=== PATIENT | female | born 1995 | race Caucasian/White ===

== ENCOUNTER 2021-01-24 17:18 | Emergency (ER) | payer SELFPAY ==
[~2021-01-24] VITALS: Ht 162.6 cm; Wt 63.5 kg
[2021-01-24] MEDS ORDERED: ONDANSETRON HCL/PF 4 MG/2 ML VIAL ONE ×2 (17:55→18:28)
[2021-01-24] MEDS ORDERED: DICYCLOMINE HCL INJ 20 MG/2 ML AMPUL IM ONE ×2 (17:55→18:00)
[2021-01-24] MEDS ORDERED: ONDANSETRON HCL/PF 4 MG/2 ML VIAL IVP ONE (18:00)
[2021-01-24] MEDS ORDERED: IV NS 0.9% 1,000 ML BAG IV ONE (18:00)
[2021-01-24 18:07] LABS: BASOPHILS # (AUTO) 0.1 K/uL (0.0-0.2); BASOPHILS % (AUTO) 0.6 % (0.0-2.0); EOSINOPHILS % (AUTO) 0.1 % (0.0-6.0); HEMATOCRIT 35 % (33-45); HEMOGLOBIN 11.5 g/dL (11.5-14.8); LYMPHOCYTES # (AUTO) 2.4 K/uL (0.8-4.8); LYMPHOCYTES % (AUTO) 20.9 % (20.0-44.0); MEAN CORPUSCULAR HGB CONC 33 g/dl (31.0-36.0); MEAN CORPUSCULAR VOLUME 80 fL (82-100); MONOCYTES # (AUTO) 0.8 K/uL (0.1-1.30); NEUTROPHILS # (AUTO) 8.3 K/uL (1.8-8.9); NEUTROPHILS % (AUTO) 71.4 % (43.0-81.0); PLATELET COUNT (AUTO) 446 K/uL (150-450); WHITE BLOOD COUNT (AUTO) 11.6 K/uL (4.3-11.0)
[2021-01-24 18:14] LABS: CALCIUM, SERUM 8.7 mg/dL (8.5-10.1); CREATININE 0.7 mg/dL (0.6-1.3); POTASSIUM 3.2 mmol/L (3.5-5.1)
--- NOTE | 2021-01-24 18:15 | NUR ---
JULIETA FROM THE STREET TO ER BED 7. AAOX4. NOT IN RESP DSITRESS. AMBULATORY. CAME IN FOR R SIDED ABDOMINAL PAIN STARTED THIS MORNING. PT ALSO C/O ASSOCIATED N/V/D. PAIN IS RATED 9/10. PROVIDER WAS AT THE BEDSIDE FOR EVAL. ORDERS RECEIVED, NOTED AND CARRIED OUT. IV LINE ESTABLISHED N THE LFA 20G, BLOOD DRAWN AND SENT TO LAB
[2021-01-24 18:19] LABS: ALBUMIN 3.5 g/dL (3.4-5.0); BILIRUBIN,DIRECT 0.1 mg/dL (0.0-0.2); BILIRUBIN,TOTAL 0.2 mg/dL (0.2-1.0); TOTAL PROTEIN, SERUM 6.6 g/dL (6.4-8.2)
[2021-01-24] MEDS ORDERED: MORPHINE SULFATE INJ 2 MG/ML DISP.SYRIN ONE (18:25)
[2021-01-24] MEDS ORDERED: IV NS 0.9% 250 ML IV ONE (18:28)
[2021-01-24] MEDS ORDERED: IOHEXOL-300 100 ML VIAL IV ONE (18:28)
[2021-01-24] MEDS ORDERED: MORPHINE SULFATE INJ 2 MG/ML DISP.SYRIN IV ONE (18:30)
[2021-01-24] MEDS ORDERED: ONDANSETRON HCL/PF 4 MG/2 ML VIAL IV ONE (18:30)
[2021-01-24] MEDS ORDERED: MORPHINE SULFATE INJ 4 MG/ML DISP.SYRIN ONE (18:53)
[2021-01-24] MEDS ORDERED: ONDANSETRON HCL/PF - ER 4 MG/2 ML VIAL IV ONE (19:00)
--- NOTE | 2021-01-24 19:15 | NUR ---
3RD ORDER OF ZOFRAN 4MG IV CANCELLED D/T PT ALREADY GOT 2 DOSES OF ZOFRAN 4MG.
[2021-01-24] MEDS ORDERED: POTASSIUM CHLORIDE 20 MEQ TAB.PRT.SR PO ONE ×2 (20:00→20:10)
--- NOTE | 2021-01-24 20:12 | NUR ---
PT STILL UNABLE TO GIVE URINE
[2021-01-24] MEDS ORDERED: ONDA4TAB11 PO (20:22)
--- NOTE | 2021-01-24 20:33 | NUR ---
Patient discharged to home in stable condition. Written and verbal after care instructions given. Patient verbalizes understanding of instruction.IV removed. Catheter intact and site benign. Pressure and 4x4 applied to site. No bleeding noted. Pt ambulatory with a steady gait
--- NOTE | 2021-01-24 20:35 | NUR ---
PT REFUSED TO TAKE KDUR 40MEQ
[2021-01-24 20:36] VITALS: BP 128/72
== END 2021-01-24 20:40 | disposition home or self-care (01) ==
LOC: ER 17:35
DX: R10.84 Generalized abdominal pain (principal); R10.31 Right lower quadrant pain; R11.10 Vomiting, unspecified; R19.7 Diarrhea, unspecified; Z59.0 Homelessness; Z76.5 Malingerer [conscious simulation]; Z90.49 Acquired absence of other specified parts of digestive tract; Z88.8 Allergy status to other drugs, medicaments and biological substances
CPT/HCPCS: 36415; 74177; 76856; 80048; 80076; 83690; 84702; 85025; 85730; 96361; 96372; 96374; 96375; 96376; 99285; J0500; J2270 ×2; J2405 ×3; J7050; Q9967